=== PATIENT | female | born 1950 | race Caucasian/White ===

== ENCOUNTER → 2018-07-12 | Outpatient (CLI) | payer MEDICARE | END | disposition home or self-care (01) | LOC: CFH 06:37 | PROVIDERS: ATTEND Family Medicine | DX: I08.8 Other rheumatic multiple valve diseases (principal); R60.0 Localized edema; E78.5 Hyperlipidemia, unspecified | CPT/HCPCS: 93306 ==

== ENCOUNTER 2018-08-02 10:28 | Outpatient (CLI) | payer MEDICARE | END 2018-08-02 23:59 | disposition home or self-care (01) | LOC: CVU 10:28 | PROVIDERS: ATTEND Family Medicine | DX: I83.91 Asymptomatic varicose veins of right lower extremity (principal) | CPT/HCPCS: 93971 ==